=== PATIENT | male | born 1960 | race Asian ===

== ENCOUNTER 2024-06-23 15:27 | Emergency (ER) | payer OTHER ==
[~2024-06-23] VITALS: Ht 177.8 cm; Wt 78.5 kg
[2024-06-23 15:33] VITALS: BP_SYST 159; PULSE 68; RESP 16; TEMP 97.8; O2SAT 99
[2024-06-23] MEDS ORDERED: NAPR-688 PO (16:26)
[2024-06-23] MEDS ORDERED: CEPH-548 PO (16:26)
[2024-06-23 16:42] VITALS: BP_SYST 159; PULSE 68; RESP 16; TEMP 97.8; O2SAT 99
== END 2024-06-23 16:43 | disposition home or self-care (01) ==
LOC: SED 15:27
DX: R59.1 Generalized enlarged lymph nodes (principal); R07.89 Other chest pain; M79.622 Pain in left upper arm; I10 Essential (primary) hypertension; Z79.899 Other long term (current) drug therapy; Z79.2 Long term (current) use of antibiotics
CPT/HCPCS: 99284